=== PATIENT | female | born 1995 | race Caucasian/White ===

== ENCOUNTER 2023-10-12 00:47 | Inpatient (IN) | payer OTHER, SELFPAY ==
[2023-10-11 19:40] VITALS: BMI 58.1
[2023-10-11 20:15] VITALS: BP 137/80; PULSE 78
[2023-10-11 20:33] VITALS: RESP 16
[2023-10-11 21:08] LABS: Basophils % 0.2 %; Eosinophils # 0.1 10^3/uL (0.0-0.8); Eosinophils % 0.7 %; Hematocrit 38.3 % (36-47); Lymphocytes # 2.1 10^3/uL (0.8-4.8); Lymphocytes % 17.1 %; Mean Corpuscular HGB Conc 31.6 g/dL (30-55); Mean Corpuscular Hemoglobin 25.3 pg (27-33); Mean Platelet Volume 12.1 fL (7.4-10.4); Monocytes # 0.8 10^3/uL (0.2-0.9); Monocytes % 6.3 %; Neutrophils # 9.06 10^3/uL (1.8-7.7); Neutrophils % 75.1 %; Nucleated Red Blood Cells % 0 %; Platelet Count 161 10^3/cmm (157-399); Red Blood Count 4.79 10^6/uL (3.85-5.65); Red Cell Distribution Width 15.9 % (12.1-15.1); White Blood Count 12.07 10^3/uL (3.29-11.43)
[2023-10-11] MEDS: miSOPROStol 100 mcg tablet 25 MCG VAGINAL (21:12)
[2023-10-11 21:57] VITALS: BP 144/84; PULSE 75
[2023-10-11 23:11] VITALS: BP 138/74; PULSE 92
[2023-10-11 23:26] VITALS: BP 118/62; PULSE 95
[2023-10-12] VITALS (72 sets, daily range): BP systolic 103–195; BP diastolic 51–98; PULSE 70–98; RESP 17–18; O2SAT 96–100
[2023-10-12] MEDS: miSOPROStol 100 mcg tablet 25 MCG VAGINAL (01:52)
[2023-10-12] MEDS: labetalol 5 mg/mL SDV 20mL 20 MG IVP ×2 (02:05→18:32)
[2023-10-12] MEDS: dextrose 5%-lactated ringers 1,000 ML 125 ML IV ×2 (10:05→17:21)
[2023-10-12] MEDS: oxytocin 30 UNIT/500 ML BAG IV (10:05)
[2023-10-12] MEDS: fentaNYL 50 mcg/mL INJ 2mL IVP ×4 (15:11→20:43)
--- NOTE | 2023-10-12 16:28 | ANES.PREANE2 ---
Pre-Anesthetic Assessment Height/Weight: Height 1.68 m Weight 163.293 kg Pulse Resp BP Pulse Ox O2 Del Method 90 17 141/91 97 Room Air 10/12/23 16:18 10/12/23 15:11 10/12/23 16:18 10/12/23 06:55 10/12/23 13:08 Epidural Familial anesthetic complications: None Was Beta Hazel taken within 24 hours: N/A Was Clonidine taken within 24 hours: N/A Social No alcohol and No tobacco Exam alert, oriented x 3, clear to auscultation bilaterally and regular rate & rhythm Airway Submandibular: within normal limits Cervical ROM: within normal limits Mallampati: Class II Dentition: full History/ROS No significant history except as noted and No significant complaints Pulmonary None reported CV/HEM Hypertension None reported Hepatic None reported GI Gastroesophageal Reflux Disease Metabolic Morbid Obesity [facility] [place] None reported Neuropsych None reported Anesthetic Plan ASA status: 3 Anesthesia: Anesthesia Evaluation, General and Regional (specify below) (Epidural) Risk of > 500 ml blood loss (7ml/kg in children): No Medications/Allergies Home Medications Medication Instructions Recorded Confirmed Last Taken Type magnesium 250 mg tablet 500 mg PO DAILY 10/11/23 10/11/23 10/11/23 05:30 History 1 vitamin 1 tab PO DAILY 10/11/23 10/11/23 10/11/23 05:30 History no.76-iron,carbonyl 29 mg iron-folic acid 1 mg tablet Allergies Allergy/AdvReac Type Severity Reaction Status Date / Time No Known Allergies Allergy Verified 10/11/23 22:32 Current Medications Generic Name Dose Route Start Last Admin Trade Name Yissel PRN Reason Stop Dose Admin Fentanyl 25 - 100 mcg 10/11/23 20:32 10/12/23 15:11 Fentanyl 50 Mcg/Ml Inj 2ml IVP 25 mcg Q1H PRN Administration SEVERE PAIN Dextrose/Lactated Ringer's 1,000 mls @ 125 mls/hr 10/11/23 20:45 10/12/23 10:05 Dextrose 5%-Lactated Ringers IV 125 mls/hr .Q8H TARA Administration Oxytocin 30 unit in 500 mls @ 1 mls/hr 10/12/23 07:15 10/12/23 11:00 Pitocin IV 7 milliunit/min .Q24H TARA 7 mls/hr Titration Protocol 1 MILLIUNIT/MIN Labetalol HCl 20 mg 10/12/23 01:37 10/12/23 02:05 Labetalol 5 Mg/Ml Sdv 20ml IVP 20 mg PRN PRN Administration HYPERTENSION Protocol [facility] Anesthesia Social History (Updated 10/11/23 @ 22:38 by Alexandria Rea RN) Smoking and tobacco/nicotine status: never used tobacco/nicotine Second hand smoke exposure: No Alcohol intake: never Substance/Drug Use: never Adopted: No Caregiver/support person: Yes Lives independently: No Household members: spouse Housing: House Marital status: Highest education level completed: Associate Degree: Occupational, Technical, Vocational Program service: No Current occupational status: previously employed Pets and animals: Yes History of recent travel: No Do you think of yourself as: Straight/Heterosexual Current gender identity: Female Special sergio needs: No Agree to transfusion: Yes Female Reproductive History : 1 Data Anesthesia 10/11/23 20:42 Short CBC 10/11/23 Range/Units 20:42 WBC 12.07 H (3.29-11.43) 10^3/uL Hgb 12.10 (11.27-16.99) g/dL Hct 38.3 (36-47) % MCV 80.0 L (85-98) fl Plt Count 161 (157-399) 10^3/cmm Neut % (Auto) 75.1 % Neut # (Auto) 9.06 H (1.8-7.7) 10^3/uL Blood Bank 10/11/23 21:37 Blood Type O Positive Rho(D) Type Rh positive Antibody Screen Negative Cardiac Studies: No Data to Display
[2023-10-12] MEDS: lactated ringers 1,000 ML 999 ML IV ×2 (20:43→21:54)
[2023-10-12] MEDS: ROPivacaine syringe 100 MG/50 ML SYRINGE 10 MG EPIDURAL (22:20)
--- NOTE | 2023-10-12 22:23 | ANES.PROC ---
Anesthesia Procedures Procedure/Date: 10/12/23 Epidural: Time Out Performed: Yes Consents Signed: Procedure Consent and NPO Consent Consent: requested by attending/covering physician, from patient, risks and benefits reviewed and patient agrees to proceed Lumbar Level: L3-L4 Epidural position: sitting Epidural procedure: sterile prep of area (betadine), 1% lidocaine to numb the area (3 mLs), neg for paresthesia, test dose given, 1.5% xylocaine 1:200k epi (3 mL/2 mL), 0.2% Ropivacaine bolus ml (5 mLs), placed PCEA, no systemic response, sterile dressing applied, L.U.D. no apparent complications and 0.2% Ropiavacaine @ mls/hr (10 mLs/hr) Additional Comments: EDWIN at 7cm, catheter threaded to 12 cm, 100mcg fentanyl given via epidural
[2023-10-13] VITALS (156 sets, daily range): BP systolic 120–176; BP diastolic 59–97; PULSE 76–131; RESP 17–18; TEMP 35.8–38.6; O2SAT 91–100
[2023-10-13] MEDS: dextrose 5%-lactated ringers 1,000 ML 999 ML IV (02:07)
[2023-10-13] MEDS: ROPivacaine syringe 100 MG/50 ML SYRINGE 10 MG EPIDURAL ×5 (02:46→15:37)
[2023-10-13] MEDS: ondansetron 2 mg/ML SDV 2 mL 4 MG IVP ×3 (04:33→14:05)
[2023-10-13] MEDS: labetalol 5 mg/mL SDV 20mL 20 MG IVP ×2 (05:41→08:56)
[2023-10-13] MEDS: dextrose 5%-lactated ringers 1,000 ML 125 ML IV ×2 (07:10→21:10)
[2023-10-13] MEDS: oxytocin 30 UNIT/500 ML BAG 24 UNIT IV (11:20)
[2023-10-13] MEDS: hyDROXYzine 25 mg Capsule 50 MG PO (13:26)
[2023-10-13] MEDS: acetaminophen 325 mg Tablet 650 MG PO (13:48)
[2023-10-13] MEDS: ampicillin 2,000 MG in sodium chloride 0.9% (plus) 50 ML 100 MG IV (14:05)
--- NOTE | 2023-10-13 15:45 | PM.OPHPUD ---
Labor & Delivery H&P Update Date of Procedure: October 13, 2023 Date H&P Performed: 10/13/23 Changes to previous documentation: This is a 28-year-old G1, P0 at 39 weeks 3 days gestation who was admitted for induction secondary to macrosomia. The patient did desire a trial of labor. Her cervix was not very favorable so she was given Cytotec x 2 overnight. She was then started on Pitocin. She underwent artificial rupture of membranes with a copious amount of clear fluid. She received an epidural for pain management. After getting the epidural her dilation and effacement progressed as expected. She made it to complete complete and pushing for 1 hour without any movement of the . 1 hour before beginning to push she started to run a temperature of 100.6. She was started on ampicillin. The was tachycardic around 170s. During pushing the infant had moderate variability good accelerations and no decelerations. Decision was made to proceed with section for failure to descend. Admission Diagnosis:
--- NOTE | 2023-10-13 15:50 | P.HP_ITS ---
Providers/Chief Complaint 2 Admitting Physician: Nona Navarro MD Primary Care Provider: Nona Navarro MD Chief Complaint: IOL History of Present Illness Ines Nicole is a 28 year old female G1, P0 at 39 weeks 1 day gestation who was admitted for induction secondary to macrosomia. Her cervix is not favorable so she will be started on Cytotec. We have previously discussed the risk benefits and alternatives of trial of labor versus section. Patient wishes to proceed with trial of labor. Review of Systems 2 General: Reports: Other (She denies any bleeding, loss of fluid, contractions. She does have good f) Medications/Allergies Home Medications Medication Instructions Recorded Confirmed Last Taken Type magnesium 250 mg tablet 500 mg PO DAILY 10/11/23 10/11/23 10/11/23 05:30 History 1 vitamin 1 tab PO DAILY 10/11/23 10/11/23 10/11/23 05:30 History no.76-iron,carbonyl 29 mg iron-folic acid 1 mg tablet Allergies Allergy/AdvReac Type Severity Reaction Status Date / Time No Known Allergies Allergy Verified 10/11/23 22:32 PFSH Acute 2 PFSH: Social History (Updated 10/11/23 @ 22:38 by Alexandria Rea RN) Smoking and tobacco/nicotine status: never used tobacco/nicotine Second hand smoke exposure: No Alcohol intake: never Substance/Drug Use: never Adopted: No Caregiver/support person: Yes Lives independently: No Household members: spouse Housing: House Marital status: Highest education level completed: Associate Degree: Occupational, Technical, Vocational Program service: No Current occupational status: previously employed Pets and animals: Yes History of recent travel: No Do you think of yourself as: Straight/Heterosexual Current gender identity: Female Special sergio needs: No Agree to transfusion: Yes Female Reproductive History: : 1 Para: 0 Other female reproductive history: KESHIA 10/17/2023 The patient has had routine care at [facility]. There have been no complications during the other than morbid obesity. She is blood type O+, antibody negative, hepatitis B nonreactive, hepatitis C nonreactive, HIV nonreactive, rubella immune, GC chlamydia negative, RPR nonreactive, UDS was positive for marijuana, she passed her glucose tolerance test, she was GBS negative. Vitals/I&O/Wt Last Vital Signs Temp 100.6 F H 10/13/23 13:40 Pulse 114 H 10/13/23 15:37 Resp 18 10/12/23 20:43 BP 168/87 10/13/23 15:37 Pulse Ox 100 10/13/23 13:32 O2 Del Method Room Air 10/12/23 16:56 10/13/23 10/13/23 10/13/23 06:59 14:59 22:59 Intake Total 2100 / 4277.250 569.667 / 569.667 45 / 614.667 Output Total 1000 / 1000 Balance 1100 / 3277.250 569.667 / 569.667 45 / 614.667 Weight last 48 hrs Weight 163.293 kg Physical Exam 2 Const: COMMON NORMALS: no acute distress, patient oriented x3 and alert HENMT: COMMON NORMALS: normocephalic and atraumatic Resp: COMMON NORMALS: normal respiratory effort and clear to auscultation bilaterally Cardio: COMMON NORMALS: regular rate and regular rhythm GI: OTHER: Gravid, soft, nontender Extremity: NARRATIVE EXTREMITY EXAM: Slight edema versus obesity Urinary Catheter Management: Andrews: Cath Placed During This Visit: yes Reason for Continuing Indwelling Catheter: Required Immobilization for Trauma or Surgery or Anesthesia Urinary Catheter Date of Insertion: 10/12/23 Urinary Catheter Time of Insertion: 23:10 Data 10/11/23 20:42 A&P Assessment and plan (1) with 39 completed weeks gestation: Trial of labor and delivery. (2) macrosomia during in third trimester: (3) Morbid obesity with BMI of 50.0-59.9, adult: Attestations 2 Medical Necessity Statement*: Expectant management of labor and delivery Coding Level of Care Code Acute Code for Chg Fwd Diagnoses with 39 completed weeks gestation Z3A.39 macrosomia during in third trimester O36.63X0 Morbid obesity with BMI of 50.0-59.9, adult E66.01; Z68.43
[2023-10-13] MEDS: lactated ringers 1,000 ML 999 ML IV (16:00)
[2023-10-13] MEDS: ceFAZolin 2,000 MG in sodium chloride 0.9% (plus) 50 ML 100 MG IV (16:01)
[2023-10-13] MEDS: famotidine 20 mg/2 mL INJ IVP (16:01)
[2023-10-13] MEDS: metoclopramide 5 mg/mL SDV 2 mL 10 MG IV (16:01)
--- NOTE | 2023-10-13 16:10 | P.ANESUD_ITS ---
Pre-Anesthetic Update Pre-Anesthetic Assessment: Date of Surgery/Procedure: 10/13/23 Proposed Procedure: Operation Date: 10/13/23 17:00 Proposed Procedures p Section(Not Applicable) - Nona Navarro MD Changes from Pre-Anesthetic Assessment: failure to progress Last Intake: > 8 hrs, ice chips Labs Last 48hrs: Short CBC 10/11/23 Range/Units 20:42 WBC 12.07 H (3.29-11.43) 10^ 3/uL Hgb 12.10 (11.27-16.99) g/ dL Hct 38.3 (36-47) % MCV 80.0 L (85-98) fl Plt Count 161 (157-399) 10^3/c mm Neut % (Auto) 75.1 % Neut # (Auto) 9.06 H (1.8-7.7) 10^3/u L Blood Bank 10/11/23 21:37 Blood Type O Positive Rho(D) Type Rh positive Antibody Screen Negative Vitals: Temperature 100.6 F H 10/13/23 13:40 Temperature Source Axillary 10/13/23 13:40 Pulse Rate 114 H 10/13/23 16:07 Pulse Rhythm Regular 10/11/23 19:40 Pulse Strength 3+ Normal 10/11/23 19:40 Respiratory Rate 18 10/12/23 20:43 Respiratory Effort Spontaneous, Non- Labored 10/12/23 20:43 Respiratory Depth Normal 10/12/23 20:43 Respiratory Patter n Normal 10/12/23 20:43 Blood Pressure 158/74 10/13/23 16:07 Pulse Oximetry 100 10/13/23 13:32 Oxygen Delivery Me thod Room Air 10/12/23 16:56 Exam: Pre-Anes Outpt Exam: alert, oriented x 3, clear to auscultation mahogany aterally and regular rate & rhythm (tachy) Cardiac Studies: No Data to Display
[2023-10-13] MEDS: citric acid-sodium citrate 30 mL UDC PO (16:11)
--- NOTE | 2023-10-13 18:53 | PM.OP ---
Operative Report Date of procedure: October 13, 2023 Pre-op diagnosis: Failure to descend Post-op diagnosis: Failure to descend Procedure done: Primary section Via Pfannenstiel skin incision Specimens removed/disposition: Vertex OP female weight 3970 g APGARS 2,5,8. Surgeon: Nona Navarro MD Estimated blood loss: 600 IV fluids: 900 Urine output: 200 Brief History: This is a 28-year-old at 39 weeks 3 days gestation who made it to complete complete and pushing without any descent. Decision was made to proceed with section for failure to descend Procedure: After informed consent the patient was taken to the OR where adequate epidural anesthesia was verified. She was prepped and draped in normal sterile fashion in dorsal supine position with a left lateral tilt. A Pfannenstiel skin incision was made and carried through to the underlying layer of fascia sharply. The fascial incision was then extended laterally using the Mayos. The fascia was then grasped with Jalil clamps and the underlying risk disc muscles were dissected off taking care to avoid injury to the underlying tissue. The peritoneum was entered bluntly and the incision site was manually stretched. There was small bowel coming from her right side so a lap attached to a hemostat was used to push the bowel out of the way. The bladder blade was then inserted. The vesicouterine peritoneum was identified and entered sharply using the Metzenbaums. The bladder flap was then created digitally. Uterine incision was made in a transverse fashion in the lower uterine segment. Rupture membranes was performed digitally and thick meconium was noted. The was in straight OP position. The 's head and body were delivered simultaneously and the infant was suctioned through the mouth and naris while the cord was clamped and cut. The was handed off to the waiting pediatric nurses. Cord blood was obtained. The placenta was delivered grossly intact. The uterus was then exteriorized from the abdomen and a dry sponge was used to clear the uterus of clots and debris. The uterine incision was repaired starting from the left aspect using 0 chromic in a running locked fashion. There was a right downward extension that was repaired starting at the apex and running up toward the incision. This was repaired using 0 chromic as well. A second layer of the same suture was used in an imbricating manner across the incision site. Since the tissue was much thinner, a second layer of 2-0 chromic was used in an imbricating manner on the extension. There was a small amount of bleeding coming from the left aspect of the uterus. 1 stitch of 0 chromic in a exoyis-ew-umewy fashion made this hemostatic. The uterus was then returned to the abdomen. The right sided lap was removed. Irrigation was used to clear the gutters of clots and debris and the uterine incision was reinspected for hemostasis. The peritoneum was then reapproximated using 4-0 Vicryl in a running fashion. The subfascial tissue was inspected for hemostasis and the fascia was then reapproximated using 0 Vicryl in a running fashion. The subcutaneous tissue was irrigated and any small bleeders were coagulated using the Bovie. The subcutaneous tissue was then reapproximated using 4-0 Vicryl in a running fashion. The skin was then reapproximated using 4-0 Vicryl in a running fashion on a Mac needle. Steri-Strips and a pressure bandage were applied and patient went to recovery in good condition. Sponge instrument and needle counts were correct.
--- NOTE | 2023-10-13 19:00 | ANE.PACU2 ---
Inpatient post-anesthesia follow up: Airway intact: Yes Vital signs: Temperature 98.8 F Pulse Rate 112 Respiratory Rate 18 Blood Pressure 146/68 Pulse Oximetry 97 Oxygen Delivery Me thod Room Air Oxygen Flow Rate Fraction of Inspir ed Oxygen Hydration adequate: Yes Nausea and vomiting: No Pain level: 1 Mental status: Baseline
--- NOTE | 2023-10-13 20:28 | PC.NURSE ---
1415 gottlieb removed for pushing. Gottlieb intact; pt tolerated well
[2023-10-13] MEDS: miSOPROStol 200 mcg Tablet 800 MCG PO (20:48)
--- NOTE | 2023-10-13 21:34 | PC.NURSE ---
2044 Dr. Navarro in room speaking with pt. Pt states large gush felt at this time. Dr. Navarro preforming fundal massage at this time. Dr. Navarro orders 800mcg of Cytotec to be given now and Pitocin to be bolused.
[2023-10-14 00:35] VITALS: BP 135/67; PULSE 115
[2023-10-14 00:49] VITALS: TEMP 37.1
[2023-10-14] MEDS: ketorolac 30 mg/mL INJ IVP (00:50)
[2023-10-14 01:32] VITALS: BP 146/68; PULSE 112
[2023-10-14] MEDS: HYDROcodone-acetaminophen 5-325 mg Tablet PO ×3 (08:18→22:18)
[2023-10-14 08:22] LABS: Hematocrit 32.4 % (36-47); Mean Corpuscular HGB Conc 31.2 g/dL (30-55); Mean Corpuscular Hemoglobin 25.5 pg (27-33); Mean Corpuscular Volume 81.8 fl (85-98); Mean Platelet Volume 11.7 fL (7.4-10.4); Platelet Count 136 10^3/cmm (157-399); Red Blood Count 3.96 10^6/uL (3.85-5.65); Red Cell Distribution Width 16.5 % (12.1-15.1); White Blood Count 26.09 10^3/uL (3.29-11.43)
[2023-10-14 08:30] VITALS: BP 130/75; PULSE 97
[2023-10-14] MEDS: dextrose 5%-lactated ringers 1,000 ML 125 ML IV (08:53)
[2023-10-14] MEDS: ferrous sulfate EC 325 mg Tablet PO (09:11)
[2023-10-14] MEDS: prenatal vitamin Capsule 1 CAP PO (09:12)
[2023-10-14 13:43] VITALS: BP 123/71; PULSE 82
--- NOTE | 2023-10-14 19:34 | P.PN_ITS ---
Subjective 2 Subjective: Postop day 1 primary for failure to descend. Mother is doing well. She is passing flatus, she is ambulating, she has taken a shower and taken the pressure bandage off. Her pain is well-controlled. Vitals/I&O/Wt Last Vital Signs Temp 98.8 F 10/14/23 00:49 Pulse 82 10/14/23 13:43 Resp 18 10/13/23 18:45 BP 123/71 10/14/23 13:43 Pulse Ox 97 10/13/23 23:18 O2 Del Method Room Air 10/13/23 20:32 10/14/23 10/14/23 10/14/23 06:59 14:59 22:59 Intake Total 835.417 / 835.417 Output Total 400 / 400 700 / 1100 Balance -400 / -400 135.417 / -264.583 Physical Exam 2 Narrative: Alert and oriented, sitting up in bed, heart regular rate and rhythm, lungs clear to auscultation bilaterally, abdomen is soft with appropriate postoperative tenderness, incision is clean dry and intact, extremities do have 3+ edema but no calf tenderness. Urinary Catheter Management: Andrews: Cath Placed During This Visit: yes, but has since been removed by the nurse Reason for Continuing Indwelling Catheter: Decision to DC Catheter Urinary Catheter Date of Insertion: 10/13/23 Urinary Catheter Time of Insertion: 16:45 Date Urinary Catheter Removed: 10/14/23 Time Urinary Catheter Discontinued: 15:25 Data 10/14/23 08:12 A&P Assessment and plan (1) Status post section: She is doing well. Continue routine postoperative care. Likely discharge home tomorrow (2) Chorioamnionitis, delivered, current hospitalization: She has been afebrile since delivery and has no increased abdominal tenderness. Attestations 2 Medical Necessity Statement*: Routine postoperative and care Coding Level of Care Code Acute Code for Chg Fwd Diagnoses Status post section Z98.891 Chorioamnionitis, delivered, current hospitalization O41.1290
[2023-10-14] MEDS: docusate sodium 100 mg Capsule PO (19:37)
[2023-10-14 22:12] VITALS: BP 133/75; PULSE 97; TEMP 36.3
[2023-10-15] VITALS (7 sets, daily range): BP systolic 121–170; BP diastolic 56–87; PULSE 88–100; RESP 18; TEMP 35.9; O2SAT 98
[2023-10-15] MEDS: HYDROcodone-acetaminophen 5-325 mg Tablet PO ×3 (01:59→12:18)
[2023-10-15] MEDS: docusate sodium 100 mg Capsule PO (10:15)
[2023-10-15] MEDS: prenatal vitamin Capsule 1 CAP PO (10:15)
[2023-10-15] MEDS: ibuprofen 800 mg tablet PO (10:15)
--- NOTE | 2023-10-15 10:42 | PM.DCS ---
Discharge Providers Date of Admission: 10/12/23 00:47 Date of Discharge: October 15, 2023 Attending Provider at Admission: Nona Navarro MD Attending Provider at Discharge: Nona Navarro MD Primary Care Provider: Nona Navarro MD Diagnoses at Discharge Discharge Diagnosis (1) Status post section: Status: Acute (2) Chorioamnionitis, delivered, current hospitalization: Status: Acute Reason for Visit Reason for Visit: IOL Hospital Course Hospital Course This is a 28-year-old G1 now P1 who was admitted for induction. She made it to complete complete and pushing with failure to descend. She then underwent a primary section for failure to descend. She is postop day #2 and doing well. She is ambulating, tolerating a regular diet, has good pain control. Her is at the NICU in [place] and she desires discharge today. Physical Exam Narrative: Alert and oriented, sitting up in bed, heart regular rate and rhythm, lungs clear to auscultation bilaterally, abdomen is soft with appropriate postoperative tenderness, incision is clean dry and intact, extremities have 3+ edema but no calf tenderness Urinary Catheter Management: Andrews: Cath Placed During This Visit: yes, but has since been removed by the nurse Reason for Continuing Indwelling Catheter: Decision to DC Catheter Urinary Catheter Date of Insertion: 10/13/23 Urinary Catheter Time of Insertion: 16:45 Date Urinary Catheter Removed: 10/14/23 Time Urinary Catheter Discontinued: 15:25 Discharge Data Studies Completed and Pending Laboratory Results WBC 26.09 10^3/uL (3.29-11.43) H 10/14/23 08:12 RBC 3.96 10^6/uL (3.85-5.65) 10/14/23 08:12 Hgb 10.10 g/dL (11.27-16.99) L 10/14/23 08:12 Hct 32.4 % (36-47) L 10/14/23 08:12 MCV 81.8 fl (85-98) L 10/14/23 08:12 MCH 25.5 pg (27-33) L 10/14/23 08:12 MCHC 31.2 g/dL (30-55) 10/14/23 08:12 RDW 16.5 % (12.1-15.1) H 10/14/23 08:12 Plt Count 136 10^3/cmm (157-399) L 10/14/23 08:12 MPV 11.7 fL (7.4-10.4) H 10/14/23 08:12 Neut % (Auto) 75.1 % 10/11/23 20:42 Lymph % (Auto) 17.1 % 10/11/23 20:42 [place] % (Auto) 6.3 % 10/11/23 20:42 Eos % (Auto) 0.7 % 10/11/23 20:42 Baso % (Auto) 0.2 % 10/11/23 20:42 Neut # (Auto) 9.06 10^3/uL (1.8-7.7) H 10/11/23 20:42 Lymph # (Auto) 2.1 10^3/uL (0.8-4.8) 10/11/23 20:42 [place] # (Auto) 0.8 10^3/uL (0.2-0.9) 10/11/23 20:42 Eos # (Auto) 0.1 10^3/uL (0.0-0.8) 10/11/23 20:42 Baso # (Auto) 0.0 10^3/uL (0.0-0.1) 10/11/23 20:42 Nucleated RBC % (auto) 0 % 10/11/23 20:42 Nucleated RBCs # 0.0 /100WBC 10/11/23 20:42 Blood Type O Positive 10/11/23 21:37 Rho(D) Type Rh positive 10/11/23 21:37 Antibody Screen Negative 10/11/23 21:37 Vitals Last Vital Signs Temp 96.6 F L 10/15/23 10:17 Pulse 93 10/15/23 10:18 Resp 18 10/13/23 18:45 BP 132/63 10/15/23 10:18 Pulse Ox 97 10/13/23 23:18 O2 Del Method Room Air 10/13/23 20:32 Discharge Plan Discharge Patient Disposition: Home Condition: Stable Prescriptions: New docusate sodium 100 mg Capsule 100 mg PO BID Qty: 60 0RF ibuprofen 800 mg Tablet 800 mg PO TID PRN (Reason: Abdominal Discomfort) Qty: 40 0RF hydrocodone-acetaminophen 5-325 mg Tablet 1 - 2 tab PO Q4H PRN (Reason: Moderate To Severe Pain) Qty: 15 0RF Continued magnesium 250 mg Tablet 500 mg PO DAILY vit,[id number]-[id number]-[id number] 29 mg iron- 1 mg Tablet 1 tab PO DAILY Discharge Orders: Discharge Order (Routine); Ordered 10/15/23 Ordered By: Nona Navarro Referrals: Nona Navarro MD [Primary Care Provider] - 7-10 days Discharge Diet: Usual diet Discharge Activity: Limit activity as instructed Patient Instructions: Depression (DC), Preeclampsia and Eclampsia After Delivery (GEN), Hemorrhage (DC), OB - Clayton/Melanie, OB Discharge Report, OB Food/Drug Interaction Guide, Opioid Safety, OB Home Care, Abnormal Bleeding Activity Restrictions/Additional Instructions: No lifting >10 lbs for 2 weeks. Nothing per vagina for 6 weeks. No driving until off the narcotic pain medication. Clean incision BID with hydrogen peroxide. Keep clean and dry. Discharge Attestations Time Spent in Discharge Care*: less than 30 min Quality Metrics Clinical Quality Measures [ No reported AMI, CVA or VTE this stay] Coding Level of Care Code Acute Code for Chg Fwd Diagnoses Status post section Z98.891 Chorioamnionitis, delivered, current hospitalization O41.1290
--- NOTE | 2023-10-15 13:54 | PC.NURSE ---
Vitals taken at 1321 directly after patient was up quickly gathering belongings in the room. Patient stated that she was anxious to see baby. After BP cycled, patient was instructed to sit in bed, rekax, and take slow breaths for recheck.
== END 2023-10-15 13:29 | disposition home or self-care (01) | DRG 786 ==
LOC: OPOB 00:48 → OBGYN 00:48
PROVIDERS: Admitting Provider Family Medicine; PCP Family Medicine; Visit Provider Family Medicine
PROC: 10D00Z1 Extraction of Products of Conception, Low, Open Approach (ICD-10-PCS; CPT 59514; principal; 2023-10-13 17:00)
DX: O36.63X0 Maternal care for excessive fetal growth, third trimester, not applicable or unspecified (principal); O41.1230 Chorioamnionitis, third trimester, not applicable or unspecified; O99.214 Obesity complicating childbirth; E66.01 Morbid (severe) obesity due to excess calories; O61.0 Failed medical induction of labor; O32.4XX0 Maternal care for high head at term, not applicable or unspecified; O77.0 Labor and delivery complicated by meconium in amniotic fluid; Z3A.39 39 weeks gestation of pregnancy; Z37.0 Single live birth
CPT/HCPCS: 36415; 51702; 59025; 59409; 85025; 85027; 86850; 86900; 96374; 96376; 98960; 99211; J0290; J0690; J1885; J2405; J2590; J2765; J2795; J3010; J3490; J7030; J7120; J7121